=== PATIENT | male | born 1930 | race Caucasian/White ===

== ENCOUNTER 2018-08-05 10:40 | Emergency (ER) | payer OTHER ==
--- NOTE | 2018-08-05 11:15 | EDPHY ---
H & P Time Seen by Provider: 08/05/18 11:14 HPI/ROS: Chief complaint. Vomiting HPI. 88-year-old male presents with vomiting and diarrhea last night. Possibly bad food exposure. Possible fever this morning. Chronic cough but cross of cough is worse. Some upper respiratory congestion. Denies chest pain or shortness of breath. No abdominal pain. No known exposure to Infectious Disease. ROS 10 systems were reviewed and negative with the exception of the elements mentioned in the history of present illness Past Medical/Surgical History: Past medical history hypertension, diabetes, sleep apnea with CPAP, prostatectomy Social History: , nonsmoker, no alcohol Smoking Status: Former smoker Physical Exam: General Appearance: Alert well-developed male mild distress vital signs are stable. Afebrile. O2 saturation 90% on room air Eyes: Pupils equal and round no pallor or injection. ENT, Mouth: Mucous membranes are moist. Respiratory: There are no retractions, lungs are clear to auscultation. Cardiovascular: Regular rate and rhythm. Gastrointestinal: Abdomen is soft and nontender, no masses, bowel sounds normal. Neurological: Awake and alert, sensory and motor exams grossly normal. Skin: Warm and dry, no rashes. Musculoskeletal: Neck is supple nontender. Extremities symmetrical, full range of motion. Psychiatric: Patient is oriented X 3, there is no agitation. Constitutional: Initial Vital Signs Temperature (C) 36.8 C 08/05/18 10:45 Heart Rate 76 08/05/18 10:45 Respiratory Rate 18 08/05/18 10:45 Blood Pressure 153/57 H 08/05/18 10:45 O2 Sat (%) 90 L 08/05/18 10:45 O2 Delivery Mode Nasal Cannula O2 (L/minute) 2 Allergies/Adverse Reactions: No Known Allergies Allergy (Verified 08/05/18 10:44) Home Medications: Medication Instructions Recorded Cholecalciferol Vit D3 [Vitamin D3 1,000 units PO DAILY 12/28/15 (*)] Cyanocobalamin [Vitamin B12 (*)] 100 mcg PO DAILY 12/28/15 Omeprazole Magnesium [Prilosec Otc] 20 mg PO DAILY 12/28/15 Simvastatin [Zocor] 20 mg PO DAILY 12/28/15 Zolpidem Tartrate [Ambien 10 mg] 10 mg PO HS 12/28/15 Hydrochlorothiazide [HCTZ (*)] 12.5 mg PO DAILY 01/17/16 Valsartan [Diovan] 320 mg PO DAILY 01/17/16 amLODIPine BESYLATE [Norvasc 5 mg 5 mg PO HS #30 tab 01/18/16 (*)] Brinzolamide [Azopt] 1 drop EACHEYE BID 06/17/16 Loratadine [Claritin 10 mg] 10 mg PO DAILY PRN 06/17/16 Pioglitazone HCl [Actos] 30 mg PO DAILY 06/17/16 metFORMIN HCL [Metformin HCl] 500 mg PO DAILY@0800 06/17/16 Acetaminophen [Tylenol 325mg (*)] 650 mg PO Q4HRS PRN #0 tab 06/21/16 Docosanol [Abreva (*)] 1 michelle TP 5XD #0 cream 06/21/16 Sodium Cl Nasal [[place] (*)] 1 spray [place] Q2 PRN #0 btl 06/21/16 Ondansetron Odt [Zofran Odt] 4 mg PO Q4PRN PRN #4 tab 08/05/18 Medical Decision Making - Diagnostics Imaging Results: Imaging Impressions Chest X-Ray 08/05/18 11:35 Impression: 1. Interstitial prominence, which could be related to fluid overload or bronchitis/airways disease, without definite evidence of pneumonia. 2. Stable cardiomegaly. Chest x-ray shows no evidence for pneumonia. It does appear your show mild CHF Procedures: IV normal saline. Zofran for nausea ED Course/Re-evaluation: Re-evaluation at 3:00 p.m.. Patient is stable feeling better. We discussed laboratory evaluation, treatment plan, criteria for return importance of follow- up and further evaluation. He expresses understanding and agreement Differential Diagnosis: Likely this is viral gastroenteritis. It could have been food poisoning from bad scallops as the patient suspects. I considered influenza. Does look like the patient has mild CHF - Data Points Laboratory Results: Laboratory Results 08/05/18 11:48 08/05/18 12:00 08/05/18 08/05/18 08/05/18 12:00 12:00 11:48 WBC 12.07 10^3/uL H 10^3/uL (3.80-9.50) RBC 4.87 10^6/uL 10^6/uL (4.40-6.38) Hgb 15.6 g/dL g/dL (13.7-17.5) Hct 45.7 % % (40.0-51.0) MCV 93.8 fL fL (81.5-99.8) MCH 32.0 pg pg (27.9-34.1) MCHC 34.1 g/dL g/dL (32.4-36.7) RDW 12.8 % % (11.5-15.2) Plt Count 187 10^3/uL 10^3/uL (150-400) MPV 8.9 fL fL (8.7-11.7) Neut % (Auto) 80.2 % H % (39.3-74.2) Lymph % (Auto) 11.9 % L % (15.0-45.0) [place] % (Auto) 7.2 % % (4.5-13.0) Eos % (Auto) 0.0 % L % (0.6-7.6) Baso % (Auto) 0.2 % L % (0.3-1.7) Nucleat RBC Rel Count 0.0 % % (0.0-0.2) Absolute Neuts (auto) 9.68 10^3/uL H 10^3/uL (1.70-6.50) Absolute Lymphs (auto) 1.44 10^3/uL 10^3/uL (1.00-3.00) Absolute Monos (auto) 0.87 10^3/uL H 10^3/uL (0.30-0.80) Absolute Eos (auto) 0.00 10^3/uL L 10^3/uL (0.03-0.40) Absolute Basos (auto) 0.02 10^3/uL 10^3/uL (0.02-0.10) Absolute Nucleated RBC 0.00 10^3/uL 10^3/uL (0-0.01) Immature Gran % 0.5 % % (0.0-1.1) Immature Gran # 0.06 10^3/uL 10^3/uL (0.00-0.10) Sodium 135 mEq/L mEq/L (135-145) Potassium 4.5 mEq/L mEq/L (3.5-5.2) Chloride 104 mEq/L mEq/L (97-110) Carbon Dioxide 20 mEq/l L mEq/l (22-31) Anion Gap 11 mEq/L mEq/L (6-14) BUN 25 mg/dL H mg/dL (7-23) Creatinine 1.2 mg/dL mg/dL (0.7-1.3) Estimated GFR 57 Glucose 126 mg/dL H mg/dL (70-100) Calcium 8.5 mg/dL mg/dL (8.5-10.4) Nasal Influenza A PCR NEGATIVE FOR FLU A (NEGATIVE) Nasal Influenza B PCR NEGATIVE FOR FLU B (NEGATIVE) Medications Given: Discontinued Medications Sodium Chloride (Ns) 1,000 mls @ 0 mls/hr IV EDNOW ONE; Wide Open PRN Reason: Protocol Stop: 08/05/18 11:36 Last Admin: 08/05/18 11:56 Dose: 1,000 mls Ondansetron HCl (Zofran) 4 mg IVP EDNOW ONE Stop: 08/05/18 11:36 Last Admin: 08/05/18 11:56 Dose: 4 mg Departure - Departure Disposition: Home, Routine, Self-Care Clinical Impression: Acute gastroenteritis Condition: Good Instructions: Gastroenteritis (ED) Additional Instructions: Frequent, small sips fluids. Gradual diet advancement. Zofran if needed for nausea and vomiting HCTZ (hydrochlorothiazide) to help with fluid in your lungs. Take supplemental potassium with this. You are already being prescribed HCTZ at a lower dose. Increase this dose to 25 mg daily for the next 3 days. Return for worsening symptoms Re-evaluation by your regular physician tomorrow or Thursday Referrals: Juwan Arevalo DO [Primary Care Provider] - 1-2 days without fail Prescriptions: Ondansetron Odt [Zofran Odt] 4 mg PO Q4PRN PRN #4 tab PRN Reason: Nausea/Vomiting, Use 1st
[2018-08-05] MEDS ORDERED: NS 1,000 ML IV ONE (11:35)
[2018-08-05] MEDS ORDERED: ONDANSETRON 4 MG/2 ML VIAL IVP ONE (11:35)
[2018-08-05 12:06] LABS: PLATELET COUNT 187 10^3/uL (150-400)
[2018-08-05 15:17] VITALS: BP 128/54
== END 2018-08-05 15:31 | disposition home or self-care (01) ==
DX: K52.9 Noninfective gastroenteritis and colitis, unspecified (principal); E86.9 Volume depletion, unspecified
CPT/HCPCS: 71046; 96361; 96374; 99284; J2405